=== PATIENT | female | born 1990 | race Caucasian/White ===

== ENCOUNTER 2018-05-29 11:38 | Emergency (ER) | payer OTHER ==
[~2018-05-29] VITALS: Wt 76.2 kg
[~2018-05-29 11:38] MED LIST: PREN-39 PO
[2018-05-29 11:40] VITALS: BP 129/79; PULSE 105; RESP 17
[2018-05-29] MEDS ORDERED: KETOROLAC 30 MG INJ IV STA (12:12)
[2018-05-29] MEDS ORDERED: ONDANSETRON 4 MG INJ IV STA (12:12)
[2018-05-29] MEDS ORDERED: IBUP-1542 PO (14:38)
[2018-05-29] MEDS ORDERED: ONDA4TAB14 PO (14:38)
--- NOTE | 2018-05-29 14:46 | ERD ---
ER Documentation Chief Complaint Chief Complaint ABD PAIN, VOMITING, ONSET THIS AM, NO DIARRHEA HPI Patient is a 28-year-old female with no past medical history presents the ER for concerns of bilateral lower abdominal pain which started this morning. Patient states that the pain is equal on both sides. Patient states pain started at 2 AM describes it to be crampy in nature. Patient denies any vaginal bleeding, dysuria, frequency, urgency or hematuria. Patient does report vomiting. She denies any fevers. Patient states her last menstrual period was 05-11-18. Patient states this is a third time this month that she has had similar pain. The pain lasts for 1 day and then goes away. ROS All systems reviewed and are negative except as per history of present illness. Medications Home Meds Active Scripts Ondansetron (Ondansetron Odt) 4 Mg Tab.rapdis, 4 MG PO Q6H PRN for NAUSEA AND/OR VOMITING, #10 TAB Prov:KAE HAHN PA-C 05/29/18 Ibuprofen* (Motrin*) 600 Mg Tab, 600 MG PO Q6, #30 TAB Prov:KAE HAHN PA-C 05/29/18 Reported Medications Vits W-Ca,Fe,Fa(<1MG) ( Vitamins) 1 Tab Tablet, 1 TAB PO DAILY 01/10/15 Allergies Allergies: Coded Allergies: No Known Drug Allergies (Verified Allergy, Mild, 01/10/15) PMhx/Soc Medical and Surgical Hx: pt denies Medical Hx History of Surgery: Yes ( X1) Hx Alcohol Use: No Hx Substance Use: No Hx Tobacco Use: No Smoking Status: Never smoker FmHx Family History: No diabetes Physical Exam Vitals Vital Signs Date Temp Pulse Resp B/P (MAP) Pulse Ox O2 O2 Flow FiO2 Time Delivery Rate 05/29/18 99.0 105 17 129/79 97 11:40 (96) Physical Exam GENERAL: Well-developed, well-nourished female. Appears in no acute distress. HEAD: Normocephalic, atraumatic. EYES: Pupils are equally reactive bilaterally. EOMs grossly intact. No conjunctival erythema. ENT: Moist mucous membranes. No uvula deviation. No kissing tonsils. NECK: Supple. No meningismus. Normal range of motion of the neck. LUNG: Clear to auscultation bilaterally. No rhonchi, wheezing, rales or coarse breath sounds. HEART: Regular rate and rhythm. No murmurs, rubs or gallops. ABDOMEN: Soft, nondistended. Minimally tender to palpation to bilateral lower quadrants. No rebound, no guarding. No peritoneal signs. No McBurney's point tenderness. EXTREMITIES: Equal pulses bilaterally. No peripheral clubbing, cyanosis or edema. No unilateral leg swelling. NEUROLOGIC: Alert and oriented. Moving all four extremities without any difficulty. Normal speech. Steady gait. SKIN: Normal color. Warm and dry. No rashes or lesions. Result Diagram: 05/29/18 1230 05/29/18 1229 Results 24 hrs Laboratory Tests Test 05/29/18 12:26 05/29/18 12:29 05/29/18 12:30 POC Beta HCG, Qualitative NEGATIVE Sodium Level 141 mmol/L Potassium Level 4.1 mmol/L Chloride Level 102 mmol/L Carbon Dioxide Level 26 mmol/L Anion Gap 13 Blood Urea Nitrogen 12 mg/dl Creatinine 0.54 mg/dl Est Glomerular Filtrat > 60 mL/min Rate mL/min Glucose Level 122 mg/dl Calcium Level 10.1 mg/dl Total Bilirubin 0.3 mg/dl Direct Bilirubin 0.00 mg/dl Indirect Bilirubin 0.3 mg/dl Aspartate Amino Transf (AST/SGOT) 30 IU/L Alanine 49 IU/L Aminotransferase (ALT/SGPT) Alkaline Phosphatase 78 IU/L Total Protein 7.8 g/dl Albumin 5.0 g/dl Globulin 2.80 g/dl Albumin/Globulin Ratio 1.78 Lipase 86 U/L White Blood Count 10.3 10^3/ul Red Blood Count 4.86 10^6/ul Hemoglobin 14.4 g/dl Hematocrit 41.7 % Mean Corpuscular Volume 85.8 fl Mean Corpuscular Hemoglobin 29.6 pg Mean Corpuscular 34.5 g/dl Hemoglobin Concent Red Cell Distribution Width 12.5 % Platelet Count 281 10^3/UL Mean Platelet Volume 10.1 fl Immature Granulocytes % 0.300 % Neutrophils % 82.0 % Lymphocytes % 13.7 % Monocytes % 3.5 % Eosinophils % 0.2 % Basophils % 0.3 % Nucleated Red Blood Cells % 0.0 /100WBC Immature Granulocytes # 0.030 10^3/ul Neutrophils # 8.5 10^3/ul Lymphocytes # 1.4 10^3/ul Monocytes # 0.4 10^3/ul Eosinophils # 0.0 10^3/ul Basophils # 0.0 10^3/ul Nucleated Red Blood Cells # 0.0 10^3/ul Urine Color YELLOW Urine Clarity CLEAR Urine pH 7.0 Urine Specific [place] 1.014 Urine Ketones NEGATIVE mg/dL Urine Nitrite NEGATIVE mg/dL Urine Bilirubin NEGATIVE mg/dL Urine Urobilinogen NEGATIVE mg/dL Urine Leukocyte Esterase NEGATIVE Keith/ul Urine Hemoglobin NEGATIVE mg/dL Urine Glucose NEGATIVE mg/dL Urine Total Protein NEGATIVE mg/dl Current Medications Medications Dose Sig/Juan Start Time Status Last (Trade) Ordered Route PRN Stop Time Admin Dose Reason Admin Ondansetron 4 mg ONCE STAT 05/29/18 DC 05/29/18 HCl (Zofran IV 12:12 12:33 Inj) 05/29/18 12:13 Ketorolac 30 mg ONCE STAT 05/29/18 DC 05/29/18 Tromethamine IV 12:12 12:33 (Toradol) 05/29/18 12:13 Procedures/MDM ED COURSE: The patient was stable throughout ED course. I kept the patient and/or family informed of laboratory and diagnostic imaging results throughout the ED course. DIAGNOSTIC IMAGING: Read by radiologist. DIAGNOSTIC IMAGING REPORT Patient: ARELY TAMAYO : 1990 Age: 28 Sex: F MR #: [id number] DOS: 05/29/18 1212 Ordering MD: KAE HAHN PA-C Location: [facility] Room/Bed: PROCEDURE: CT Abdomen and Pelvis without contrast. CLINICAL INDICATION: Abdominal pain. TECHNIQUE: CT scan of the abdomen and pelvis without contrast was performed on a multidetector high-resolution CT scanner. The patient was scanned without intravenous contrast. Coronal and sagittal reformatted images were obtained from the axial source images. Images were reviewed on a high-resolution PACS workstation. The total exam CTDI equals 10.61 mGy and the total exam DLP equals 640.4 mGy-cm. One or the following dose reduction techniques were used: -Automated exposure control. -Adjustment of the mA and/or KV according to patient's size. -Use of iterative reconstruction technique. DICOM images are available. COMPARISON: None. FINDINGS: Lower thorax: Unremarkable. GI:. Unremarkable. Liver: Liver appears normal in size with a decrease in overall attenuation consistent with steatosis. Gallbladder: Unremarkable. Pancreas: Unremarkable. Spleen: Unremarkablel Adrenals: Unremarkable. Kidneys: There is no evidence of urolithiasis or obstructive uropathy. Bladder: Unremarkable. Pelvic Organs: There are multiple ovarian follicles seen bilaterally. There are numerous seen in the left ovary. The largest measures 2.7 cm in diameter. Skeleton: Normal for age. Other: N/A IMPRESSION: 1. No evidence of urolithiasis or obstructive uropathy. 2. Mild diffuse hepatic steatosis. 3. Normal appearing appendix visualized. 4. Numerous bilateral ovarian cysts, left greater than right, likely follicles. 5. No mass, lymphadenopathy or evidence of an acute inflammatory process. RPTAT: [facility] Physician Devante Date Time Electronically viewed and signed by Physician Devante on 05/29/2018 14:02 JH/ CC: KAE HAHN PA-C [id number] PROCEDURES: None. MEDICATIONS GIVEN: Zofran, Toradol Patient tolerated medication well with no adverse reactions. Patient reported improvement in pain. MEDICAL DECISION MAKING: This is a 28-year-old female presents to the ER for concerns of bilateral lower quadrant pain and vomiting times 1 day.. Vital signs were reviewed. Patient is afebrile. CBC showed no evidence of systemic infection or severe anemia. CMP showed no evidence of electrolyte abnormalities, severe acidosis, alkalosis, renal failure, or liver disease. Lipase showed no evidence of acute pancreatitis. UA showed no evidence of acute infection or hematuria. Low suspicion for UTI, pyelonephritis or nephrolithiasis. Urine test was negative. IV line was established. Patient was given Zofran and Toradol for her pain. Patient had no additional episodes of vomiting throughout the ED course. CT abdomen pelvis showed 1. No evidence of urolithiasis or obstructive uropathy. 2. Mild diffuse hepatic steatosis. 3. Normal appearing appendix visualized. 4. Numerous bilateral ovarian cysts, left greater than right, likely follicles. 5. No mass, lymphadenopathy or evidence of an acute inflammatory process. There are multiple ovarian follicles seen bilaterally. There are numerous seen i n the left ovary. The largest measures 2.7 cm in diameter. At this time, patient's presentation is most consistent with bilateral ovarian cyst. Patient was advised to follow-up with an [facility]. Copy of blood work and imaging studies was provided to the patient. Low suspicion for acute coronary syndrome, AAA, mesenteric ischemia, lower lobe pneumonia, DKA, bowel perforation, cholecystitis, choledocholithiasis, ascending cholangitis, hepatic abscess, pancreatitis, PUD, gastritis, GERD, splenic rupture, diverticulitis, UTI, pyelonephritis, nephrolithiasis, appendicitis, constipation, , ectopic , PID, ovarian torsion or tubo-ovarian abscess. Patient was nontoxic, non-opening prior to discharge. PRESCRIPTIONS: Ibuprofen, Zofran DISCHARGE: At this time, patient is stable for discharge and outpatient management. I have instructed the patient to follow-up with his/her primary care physician in 1-2 days. I have instructed the patient to promptly return to the ER at any time for any new or worsening symptoms including increased pain, nausea, vomiting, diarrhea, fever, weakness or LOC. The patient and/or family expressed understanding of and agreement with this plan. All questions were answered. Home care instructions were provided. Disclaimer: Inadvertent spelling and grammatical errors are likely due to EHR/dictation software use and do not reflect on the overall quality of patient care. Also, please note that the electronic time recorded on this note does not necessarily reflect the actual time of the patient encounter. Departure Diagnosis: Primary Impression: Bilateral ovarian cysts Condition: Fair Patient Instructions: Ovarian Cyst Referrals: [facility] YOU HAVE RECEIVED A MEDICAL SCREENING EXAM AND THE RESULTS INDICATE THAT YOU DO NOT HAVE A CONDITION THAT REQUIRES URGENT TREATMENT IN THE EMERGENCY DEPARTMENT. FURTHER EVALUATION AND TREATMENT OF YOUR CONDITION CAN WAIT UNTIL YOU ARE SEEN IN YOUR DOCTORS OFFICE WITHIN THE NEXT 1-2 DAYS. IT IS YOUR RESPONSIBILITY TO MAKE AN APPOINTMENT FOR FOLOW-UP CARE. IF YOU HAVE A PRIMARY DOCTOR --you should call your primary doctor and schedule an appointment IF YOU DO NOT HAVE A PRIMARY DOCTOR YOU CAN CALL OUR PHYSICIAN REFERRAL HOTLINE AT IF YOU CAN NOT AFFORD TO SEE A PHYSICIAN YOU CAN CHOSE FROM THE FOLLOWING [facility] [address] [facility] [address] [facility]. [facility] [address] [facility] [address] [facility] [phone] [facility]. [facility] [address] [facility]. [facility] YOU HAVE RECEIVED A MEDICAL SCREENING EXAM AND THE RESULTS INDICATE THAT YOU DO NOT HAVE A CONDITION THAT REQUIRES URGENT TREATMENT IN THE EMERGENCY DEPARTMENT. FURTHER EVALUATION AND TREATMENT OF YOUR CONDITION CAN WAIT UNTIL YOU ARE SEEN IN YOUR DOCTORS OFFICE WITHIN THE NEXT 1-2 DAYS. IT IS YOUR RESPONSIBILITY TO MAKE AN APPOINTMENT FOR FOLOW-UP CARE. IF YOU HAVE A PRIMARY DOCTOR --you should call your primary doctor and schedule and appointment IF YOU DO NOT HAVE A PRIMARY DOCTOR YOU CAN CALL OUR PHYSICIAN REFERRAL HOTLINE AT . IF YOU CAN NOT AFFORD TO SEE A PHYSICIAN YOU CAN CHOSE FROM THE FOLLOWING [facility] INSTITUTIONS: [facility] [address] [place] [address] [facility] [address] [place] [address] [facility] [address] [place] [address] [facility] [place] [id number] [facility] [address] [place], [place] [phone] OFFICE FAX ADELA LAMB [address] [place], [place] [id number] [place] [address] [place], [place] [phone] CORTNEY HER[place]NDEZ [address] [facility], [address] [address] [place] [address] [facility] [place], [place] [phone] [facility] [address] [place], [place] [id number] [address] [facility] [facility] [id number] - [place]ER[place]AL [address], [facility] [address] [address] [place], [place] [address] [facility]. [address], [facility] [address] [address], [facility] [address] [place] [address] Additional Instructions: Call your primary care doctor/ OBGYN TOMORROW for an appointment during the next 1-2 days.See the doctor sooner or return here if your condition worsens before your appointment time. KAE HAHN PA-C May 29, 2018 14:46
== END 2018-05-29 14:49 | disposition home or self-care (01) ==
LOC: FTE 11:38
DX: N83.201 Unspecified ovarian cyst, right side (principal); N83.202 Unspecified ovarian cyst, left side
CPT/HCPCS: 36415; 74176; 80053; 81003; 81025; 83690; 85025; 96374; 96375; J1885; J2405; Z7502